=== PATIENT | male | born 1965 | race Two or more races ===

== ENCOUNTER 2017-11-24 15:24 | Emergency (ER) | payer BC ==
--- NOTE | 2017-11-24 15:49 | ER Document Report ---
ED GI/ - General Chief Complaint: Urinary Problem Stated Complaint: ABDOMINAL PAIN Time Seen by Provider: 11/24/17 15:43 TRAVEL OUTSIDE OF THE [place] IN LAST 30 DAYS: No - HPI Patient complains to provider of: Dysuria, Other - 1 day history increasing pain with urination and urgency. Patient states he rides a cycle off that he noticed about 2 days ago. Pain located anterior his rectum and behind his penis exacerbated with urination. Denies fever chills or back pain. Notes: 11/24/17 16:38 Patient rides a great deal of bicycles. Patient has pains under his scrotum. He has a enlarged prostate or prostatitis. - Related Data Allergies/Adverse Reactions: No Known Allergies Allergy (Verified 11/24/17 15:27) Past Medical History - General Information source: Patient - Social History Smoking Status: Unknown if Ever Smoked Family History: None - Past Medical History Cardiac Medical History: Denies: Hx Heart Attack, Hx Hypertension Pulmonary Medical History: Denies: Hx Asthma Neurological Medical History: Denies: Hx Cerebrovascular Accident, Hx Seizures GI Medical History: Denies: Hx Hepatitis, Hx Hiatal Hernia, Hx Ulcer Infectious Medical History: Denies: Hx Hepatitis Past Surgical History: Denies: Hx Open Heart Surgery, Hx Pacemaker Review of Systems - Review of Systems Constitutional: No symptoms reported EENT: No symptoms reported Cardiovascular: No symptoms reported Respiratory: No symptoms reported Gastrointestinal: No symptoms reported Genitourinary: Dysuria, Frequency Male Genitourinary: No symptoms reported Musculoskeletal: No symptoms reported Skin: No symptoms reported Hematologic/Lymphatic: No symptoms reported Neurological/Psychological: No symptoms reported Physical Exam - Vital signs Vitals: Temp Pulse Resp BP Pulse Ox 98.1 F 97 16 128/68 H 100 11/24/17 15:30 11/24/17 15:30 11/24/17 15:30 11/24/17 15:30 11/24/17 15:30 Interpretation: Normal - General General appearance: Appears well, Alert - HEENT Head: Normocephalic, Atraumatic Eyes: Normal Pupils: PERRL - Respiratory Respiratory status: No respiratory distress Chest status: Nontender Breath sounds: Normal Chest palpation: Normal - Cardiovascular Rhythm: Regular Heart sounds: Normal auscultation Murmur: No - Abdominal Inspection: Normal Distension: No distension Bowel sounds: Normal Tenderness: Nontender Organomegaly: No organomegaly - Back Back: Normal, Nontender - Extremities General upper extremity: Normal inspection, Nontender, Normal color, Normal ROM , Normal temperature General lower extremity: Normal inspection, Nontender, Normal color, Normal ROM , Normal temperature, Normal weight bearing. No: Tho's sign - Neurological Neuro grossly intact: Yes Cognition: Normal Orientation: AAOx4 Arline Coma Scale Eye Opening: Spontaneous Gray Coma Scale Verbal: Oriented Gray Coma Scale Motor: Obeys Commands Arline Coma Scale Total: 15 Speech: Normal Motor strength normal: LUE, RUE, LLE, RLE Sensory: Normal - Psychological Associated symptoms: Normal affect, Normal mood - Skin Skin Temperature: Warm Skin Moisture: Dry Skin Color: Normal Course - Re-evaluation Re-evalutation: 11/24/17 16:36 Unfortunate man presents with pain in his prostate tender prostate. Urine shows a great deal of blood. Patient was started on Bactrim, 2 week course. Patient declined rectal exam. Will follow up with family doctor return if anything changes - Vital Signs Vital signs: Temp Pulse Resp BP Pulse Ox 98.1 F 97 16 128/68 H 100 11/24/17 15:30 11/24/17 15:30 11/24/17 15:30 11/24/17 15:30 11/24/17 15:30 - Laboratory Laboratory results interpreted by me: 11/24/17 16:00 Urine Blood MODERATE H Ur Leukocyte Esterase LARGE H Discharge - Discharge Clinical Impression: Acute prostatitis Condition: Stable Disposition: HOME, SELF-CARE Instructions: Prostatitis ([facility]) Prescriptions: Sulfamethoxazole/Trimethoprim [Bactrim Ds Tablet] 1 each PO BID #[id number] tablet Referrals: SHADIA WAGGONER NP [ALLIED HEALTH PROFESSIONAL] - Follow up as needed CHE NULL NP [COMMUNITY BASED STAFF] - Follow up as needed
[2017-11-24 16:21] LABS: APPEARANCE,URINE SLIGHTLY-CLOUDY; BILIRUBIN,URINE NEGATIVE (NEGATIVE); COLOR,URINE STRAW; GLUCOSE, URINE NEGATIVE (NEGATIVE); KETONES,URINE NEGATIVE (NEGATIVE); LEUKOCYTE ESTERASE,URINE LARGE (NEGATIVE); NITRITE,URINE NEGATIVE (NEGATIVE); PROTEIN,URINE NEGATIVE (NEGATIVE); URINE SPECIFIC GRAVITY 1.006; UROBILINOGEN,URINE NEGATIVE mg/dL (<2.0)
[2017-11-24 16:43] VITALS: BP 119/62
== END 2017-11-24 16:43 | disposition home or self-care (01) ==
LOC: ER 15:24
DX: N41.0 Acute prostatitis (principal); R30.0 Dysuria; R35.0 Frequency of micturition; R31.9 Hematuria, unspecified
CPT/HCPCS: 81001; 99284